=== PATIENT | male | born 1995 | race Caucasian/White ===

== ENCOUNTER 2017-10-03 18:24 | Emergency (ER) | payer OTHER | END 2017-10-03 21:13 | disposition home or self-care (01) | LOC: M ED 18:24 | DX: R59.0 Localized enlarged lymph nodes (principal) | CPT/HCPCS: 76536 ==

== ENCOUNTER 2017-11-03 10:13 | Day surgery (SDC) | payer OTHER ==
[2017-11-03] MEDS ORDERED: ONDANSETRON 4MG/2ML VIAL (J2405) As Ordered (10:37)
[2017-11-03] MEDS ORDERED: LIDOCAINE 2% INJ 100 MG/5 ML SDV (FOR ANES.) As Ordered (10:37)
[2017-11-03] MEDS ORDERED: PROPOFOL 200 MG/20 ML VIAL As Ordered (10:37)
[2017-11-03] MEDS ORDERED: dexameTHASONE 4 MG/ML 1ML VIAL (J1100) As Ordered (10:37)
[2017-11-03] MEDS ORDERED: MIDAZOLAM INJ 2 MG/2 ML VIAL (J2250) As Ordered (10:38)
[2017-11-03] MEDS ORDERED: fentaNYL 100 MCG/2 ML INJECTION (J3010) As Ordered (10:38)
[2017-11-03] MEDS: LR 1,000 ML IV (10:42)
[2017-11-03] MEDS: LIDOCAINE W/EPINEPHRINE 1% 20ML VIAL As Ordered (12:20)
[2017-11-03] MEDS ORDERED: KETOROLAC 30 MG/ML VIAL (J1885) As Ordered (12:44)
[2017-11-03] MEDS: KETOROLAC 30 MG/ML VIAL (J1885) IV (13:14)
[2017-11-03] MEDS ORDERED: ONDANSETRON 4MG/2ML VIAL (J2405) IV (13:15)
[2017-11-03] MEDS ORDERED: LR 1,000 ML IV (13:15)
[2017-11-03] MEDS ORDERED: NORCO, ANEXSIA 5/325MG TABLET (HYDROcodone/ACETAMINOPHEN) PO (13:15)
[2017-11-03] MEDS ORDERED: METOCLOPRAMIDE INJ 10MG/2ML VIAL (J2765) IV (13:15)
[2017-11-03] MEDS ORDERED: fentaNYL 100 MCG/2 ML INJECTION (J3010) IV (13:15)
[2017-11-03] MEDS ORDERED: IBUPROFEN 800 MG TAB PO (21:00)
== END 2017-11-03 14:05 | disposition home or self-care (01) ==
LOC: M SDC 10:13
DX: L72.3 Sebaceous cyst (principal)
CPT/HCPCS: 11423